=== PATIENT | female | born 1935 | race Caucasian/White ===

== ENCOUNTER 2016-06-12 20:10 | Inpatient (IN) | payer MEDICARE, OTHER ==
--- NOTE | ~2016-06-12 | US37 ---
[facility] A Service of [facility] RADIOLOGY TEXT RESULTS PATIENT: NAVYA CAMARA LOCATION: [facility] : 33 UNIT #: [id number] AGE: [address]: Jayatn Aldridge MD SEX: F ORDER DR: [id number] [facility] [address] [place], [place] [address] [id number] I MR#: [id number] Acc #: [id number] NAME: NAVYA CAMARA : 1935 SEX: F STUDY DATE/TIME: 06/13/2016 10:20 UNIT: [facility] ROOM: [facility] STUDY DESCRIPTION: US Carotid W/Doppler Bilateral Attending Physician: Jayant Aldridge M.D. Ordering Physician: Getachew Ordaz M.D. Primary Care Physician: Crista Antony M.D. MEDICAL IMAGING REPORT This report is preliminary unless electronic signature is present EXAM Carotid duplex scan, 06/13/2016. HISTORY Coronary artery disease. FINDINGS The right common carotid artery has a small amount of dense plaque. There is heterogeneous dense plaque in the right carotid bulb that extends up into the proximal internal and external carotid arteries. Peak systolic velocity in the distal right internal carotid artery is 99 cm/sec with an end diastolic velocity of 19 cm/sec. The ICA:CCA ratio on the right is 1.84. Peak systolic velocity in the right external carotid artery is 261 cm/sec. The right vertebral artery is patent with antegrade flow. The left common carotid artery has a small amount of dense plaque. There is heterogeneous dense plaque in the left carotid bulb that extends up into the proximal internal and external carotid arteries. Peak systolic velocity initiate the distal left internal carotid artery is 97 cm/sec with an end diastolic velocity of 12 cm/sec. The ICA:CCA ratio on the left is 1.45. Peak systolic velocity in the left external carotid artery is 119 cm/sec. The left vertebral artery is patent with antegrade flow. IMPRESSION Plaque, but no significant stenosis (less than 50%) in the internal carotid arteries bilaterally. Significant stenosis of the right external carotid artery. No significant stenosis of the left external carotid artery. Patent vertebral arteries bilaterally with antegrade flow. Dictated by... Judson Newman M.D. [facility] A Service of [facility] RADIOLOGY TEXT RESULTS PATIENT: NAVYA CAMARA LOCATION: [place] [address] : [birth year] UNIT #: [id number] AGE: [address]: Jayant Aldridge MD SEX: F ORDER DR: THIS IS AN ELECTRONICALLY VERIFIED REPORT Judson Newman M.D. at 06/14/2016 7:31 AM LÓPEZ/harriet TD: 06/13/2016 14:28 JOB #: [id number] MEDICAL IMAGING REPORT COPY
--- NOTE | ~2016-06-12 | TH ---
Unit #: [id number] #: [id number] Patient: NAVYA CAMARA [id number] [address] [place], [place] [address] [id number] I MR#: [id number] NAME: NAVYA CAMARA : 1935 SEX: F STUDY DATE/TIME: 06/13/2016 UNIT: C5B ROOM: 559 STUDY DESCRIPTION: Lexiscan stress test - Nuclear Attending Physician: Jayant Aldridge M.D. Primary Care Physician: Crista Antony M.D. CARDIOLOGY REPORT PROCEDURE PERFORMED Lexiscan Cardiolite stress test - Nuclear portion. PROCEDURE Using technetium 99m-labeled Cardiolite, rest and stress SPECT images were obtained. Multiple SPECT images were obtained in various views, including horizontal and vertical long axis and short axis views of the left ventricle. Images were obtained by gated SPECT method. The patient was administered 11.41 mCi of Cardiolite at rest. The patient was administered 35.8 mCi of Cardiolite after Lexiscan infusion was completed. On the stress images, there is normal perfusion noted. The rest images show normal perfusion. Comparing the rest and stress images, there is no stress-induced ischemia noted. The left ventricular ejection fraction is calculated to be 80%. There is no focal wall motion abnormality seen. CONCLUSION 1. No stress-induced ischemia noted. 2. The left ventricular ejection fraction is calculated to be 80%. 3. There is no focal wall motion abnormality seen. 4. The left ventricular size is small. 5. Normal Lexiscan Cardiolite stress test. Dictated by... Leticia Barry/juan j TD: 06/13/2016 15:15 JOB #: [id number] CARDIOLOGY REPORT X Maria Antonia Jenkins MD <ELECTRONICALLY SIGNED> 11/10/16 1428 CARDIOLOGY REPORT
--- NOTE | ~2016-06-12 | CR72 ---
[facility] A Service of [facility] RADIOLOGY TEXT RESULTS PATIENT: NAVYA CAMARA LOCATION: [place] [address] : 33 UNIT #: [id number] AGE: [address]: Jayant Aldridge MD SEX: F ORDER DR: [id number] [place] [id number] I MR#: [id number] Acc #: [id number] NAME: NAVYA CAMARA. : 1935 SEX: F STUDY DATE/TIME: 06/12/2016 20:03 UNIT: SEDOF ROOM: [facility] STUDY DESCRIPTION: CR Chest Single View Portable Attending Physician: Basia Gracia M.D. Ordering Physician: Kiko Giron M.D. Primary Care Physician: Crista Antony M.D. MEDICAL IMAGING REPORT This report is preliminary unless electronic signature is present. EXAM Chest x-ray, portable. DATE OF EXAM 06/12/2016 HISTORY Hypertension today. History of COPD. Head feels weird. COMMENT Single frontal portable view of the chest timed 20:03, 06/12/2016. COMPARISON Compared to 11/07/2012. FINDINGS There is borderline cardiac silhouette enlargement, and this has increased from 2013. Borderline central vascular congestion also suspected. Patchy airspace disease left greater than right lung base probably some atelectasis given the relatively low lung volumes but clinical correlation and follow up is recommended. No pleural effusion or pneumothorax. IMPRESSION Interval increase in cardiac silhouette size since 2012 now borderline enlarged with a suggestion of some mild central vascular congestion. Patchy bibasilar airspace disease left greater than right lung base is probably some atelectasis given the relatively lower lung volumes, but clinical correlation and follow up is recommended to ensure resolution and exclude unlikely secondary possibilities such as aspiration or early pneumonia. [facility] A Service of [facility] RADIOLOGY TEXT RESULTS PATIENT: NAVYA CAMARA LOCATION: [place] [address] : 33 UNIT #: [id number] AGE: [address]: Jayant Aldridge MD SEX: F ORDER DR: Dictated by... Gaby Meade M.D. THIS IS AN ELECTRONICALLY VERIFIED REPORT Gaby Meade M.D. at 06/13/2016 2:17 PM MICHA/yaniv TD: 06/13/2016 00:18 JOB #: [id number] MEDICAL IMAGING REPORT
--- NOTE | ~2016-06-12 | CO ---
Unit #: [id number] #: [id number] Patient: NAVYA WEST [id number] [place] [id number] [facility]. [place], [place] [address] [id number] I MR#: [id number] NAME: NAVYA WEST ROOM: 55 Age: 80 Sex: F Admission Date: 06/12/2016 : 1935 Attending Physician: Jayant Aldridge M.D. Primary Care Physician: Crista Antony M.D. CONSULTATION REPORT REASON FOR CONSULT Chest pain and vertigo. HISTORY OF PRESENT ILLNESS The patient is an 80-year-old white female known to have hypertension, diabetes mellitus, and hyperlipidemia, who had been in a reasonably good state of health until about a week ago when she started complaining of ringing in her ears, dizziness, and lightheadedness which would occur usually during the daytime, mostly when she would be sitting around at home, e.g., watching television or reading something, and rarely if ever during sleep. Change of posture from one side to the other while lying in bed caused no dizziness, lightheadedness, or ringing in her ears. Her periods of dizziness were described as sudden onset of ringing in the ears, followed by a burning sensation in the epigastric region, accompanied by nausea and palpitations. This was occasionally associated with diplopia and blurred vision, and on direct questioning, she admits to having loss of vision as if part of the television screen was turning black. She denied any true syncope, and these symptoms of dizziness and nausea would last for five to 10 minutes at a time. She had been treated with medicines the nature of which she does not know at [facility] without any benefit. She denies any weakness in the extremities, had no headaches to suggest migraines, and she denied any falls. On some occasions when she is walking around the house, she would stager and walk into the hallway allen. She went to the emergency room at [facility] last night and was transferred to this telemetry unit. From a cardiac standpoint, the patient has had two or three episodes of midsternal chest tightness radiating to both infraclavicular regions and the left upper arm, accompanied by tingling and numbness in the left upper extremity, without accompanying diaphoresis, though she was nauseated and denied any shortness of breath. There is no radiation of this discomfort to the interscapular region. She has never been awakened from sleep with chest pain or shortness of breath and denies any orthopnea or nocturnal dyspnea. She has had unilateral left leg edema on occasions which improves after a good night's rest. Patient denies any history of previous NJ, rheumatic fever, or heart murmur, and denies any history of syncope or near syncope. PAST MEDICAL HISTORY 1. Hypertension. 2. Hyperlipidemia. 3. She denies any history of diabetes mellitus. Unit #: [id number] #: [id number] Patient: NAVYA WEST PAST SURGICAL HISTORY Removal of a thyroid nodule. SOCIAL AND PERSONAL HISTORY She stopped smoking after 50 pack years. She does not drink alcohol. FAMILY HISTORY Negative for significant ischemic heart disease, though her of an NJ. PHYSICAL EXAMINATION GENERAL: Examination reveals an elderly female well preserved for her age and is in no acute cardiorespiratory distress. NECK: There is no jugular venous distention. Both carotids have a normal upstroke without any bruits. EXTREMITIES: No ankle edema is noted. Left posterior tibialis pulse is palpable. Right posterior tibialis is feeble. There is no femoral artery bruit. CARDIAC: Exam shows apical impulses palpable in fifth intercostal space in midclavicular line and is normal. Both heart sounds are normal. No rubs or clicks are audible. Thee is a grade 1/6 systolic ejection murmur heard best at the apex suggestive of mitral annulus calcification. No diastolic murmurs are audible. CHEST: Examination shows good air entry bilaterally without any rales or rhonchi. ABDOMEN: Examination shows no hepatosplenomegaly, free fluid, or masses. RECTAL: Deferred. CENTRAL NERVOUS SYSTEM: Examination is within normal limits. DIAGNOSTIC STUDIES LABORATORY: Glucose was normal at 130, creatinine 0.7, GFR 60, and sodium 126. Admission potassium was 3.4. On the morning of June 13, potassium is 2.9, chloride 96, and magnesium is 1.7. CK and CK-MB bands were normal. BNP was 261. TSH was 2.71. INR 1. D-dimer 353. Troponin level was normal. Hemoglobin was 11.9 and hematocrit 34.2. CARDIOLOGY: EKG shows normal sinus rhythm and nonspecific ST segment change. Frequent PVCs in a bigeminal pattern are noted, and there are no acute ischemic changes. Rhythm strips reveal normal sinus rhythm with occasional PVCs. DIAGNOSES 1. Vertigo probably secondary to inner ear disease. 2. Chest pains most likely secondary to significant ischemic heart disease. 3. Premature ventricular contractions probably precipitated by hypokalemia. 4. Hyponatremia and hypokalemia secondary to diuretics. 5. History of hypertension. 6. Hyperlipidemia by history. 7. Reformed smoker. PLAN Patient will be given potassium supplement. She has already been started on long-acting nitrates along with aspirin. Patient will be started on small-dose beta leonarda carvedilol to help control blood pressure and ventricular arrhythmias. I have advised the patient to proceed with Lexiscan Cardiolite study to rule out significant ischemia given her risk Unit #: [id number] #: [id number] Patient: NAVYA WEST factor of age, hyperlipidemia, hypertension, past cigarette smoking history, and now chest discomfort suggestive of ischemic heart disease. All this was discussed with the patient and her son who was at the bedside. I have also taken the liberty to start her on meclizine to help relieve her vertigo. 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 Thank you very much for associating me in the care of Ms. West. Dictated by... Leticia Garcia/silvia TD: 06/13/2016 18:51 JOB #: [id number] CONSULTATION REPORT X Getachew Ordaz MD X CONSULTATION REPORT
--- NOTE | ~2016-06-12 | ST ---
Unit #: [id number] #: [id number] Patient: NAVYA CAMARA [id number] [address] [address] [id number] I MR#: [id number] NAME: NAVYA CAMARA : 1935 SEX: F STUDY DATE/TIME: 06/13/2016 UNIT: C5B ROOM: 559 STUDY DESCRIPTION: Stress Test Attending Physician: Jayant Aldridge M.D. Primary Care Physician: Crista Antony M.D. CARDIOLOGY REPORT REASON FOR EXAM Chest pain, rule out coronary artery disease. DESCRIPTION Baseline EKG shows normal sinus rhythm, occasional PVC. 0.4 mg of Lexiscan was injected per protocol followed by Cardiolite. During the test, the patient did experience complaints of shortness of breath and dizziness. Blood pressure did drop slightly from 147/78 to 112/58. Her symptoms resolved approximately one minute into the recovery period. She denies any complaints of chest pain. During the infusion, there were occasional PVCs. There were no ST or T wave changes noted during the infusion. This test was stopped due to protocol completion. CONCLUSION 1. Negative EKG portion of Lexiscan Cardiolite. 2. No ST or T wave changes suggestive of ischemia during the infusion. 3. The patient did experience shortness of breath and dizziness during the infusion. Blood pressure did drop from 147/78 to 112/58. Her symptoms resolved completely within one minute into the recovery period. She denies any complaints of chest pain. 4. There were occasional PVCs noted. 5. Please correlate with nuclear imaging. Dictated by... Annamarie Hyde A.P.R.N. for Getachew Ordaz M.D. LMW/df TD: 06/13/2016 12:58 JOB #: [id number] Unit #: [id number] #: [id number] Patient: NAVYA CAMARA CARDIOLOGY REPORT X Annamarie Hyde APRN CARDIOLOGY REPORT
--- NOTE | ~2016-06-12 | HP ---
Unit #: [id number] #: [id number] Patient: NAVYA CAMARA [id number] [address] [place], [place] [address] [id number] I MR#: [id number] NAME: NAVYA CAMARA. ROOM: 559 Age: 80 Sex: F Admission Date: 06/12/2016 : 1935 Attending Physician: Basia Gracia M.D. Primary Care Physician: Crista Antony M.D. HISTORY AND PHYSICAL CHIEF COMPLAINT Vertigo, accelerated hypertension, chest pain and hyponatremia. HISTORY This pleasant 80-year-old female with peptic ulcer disease, COPD, hypertension, is admitted for vertigo, and hyponatremia. The patient was in her usual state of health until one week prior to admission when she began to experience vertigo, associated with feeling off balance and occasionally left arm tingling. She was seen at [facility] emergency department a week ago and was diagnosed with vertigo and GERD. Described increased burping and gas but no chest pain. Saw her primary care physician yesterday and her blood pressure was noted to be elevated, potassium somewhat low. Medications were to be adjusted. However, last evening developed increasing vertigo and left arm tingling, along with burping. Went to [facility] emergency department late last evening with a heart rate of 77, blood pressure 198/87. Labs are notable for a sodium of 126, but patient does take Maxzide. She was treated with a GI cocktail, Tums, given 0.1 mg a clonidine. I was called to admit the patient, and I asked that 10 mg of Norvasc also be given. Just before the patient was transferred here, while on the gurney to be transferred she developed chest tightness lasting for about half an hour. She was noted to have bigeminy. She was given aspirin, nitropaste. Before further workup could be done in terms of repeat cardiac enzymes she was taken to our hospital by EMS. At this time she is pain free, and her current blood pressure is 164/69. PAST MEDICAL HISTORY 1. GERD and history of peptic ulcer disease. 2. COPD. 3. Hypertension. 4. Chronic low back pain. 5. Right breast biopsy. 6. Hysterectomy. 7. Partial thyroidectomy. ALLERGIES No known drug allergies. MEDICATIONS Dyazide 75/50 half a tablet daily; metoprolol 25 mg b.i.d.; Advair 100/50 one puff b.i.d.; fish oil daily; Zocor 20 mg daily; multivitamin daily; Prilosec daily. Unit #: [id number] #: [id number] Patient: NAVYA CAMARA FAMILY HISTORY Positive for CAD. SOCIAL HISTORY The patient lives alone. She is accompanied by her son. She stopped smoking about ten years ago. Smoked for about 50 years. Does not drink alcohol. REVIEW OF SYSTEMS Notable for vertigo, feeling off balance, acid reflux, COPD, hypertension, chronic back pain, increasing burping, left arm tingling, episode of chest discomfort, above mentioned surgeries. All other systems were reviewed and are otherwise negative. PHYSICAL EXAMINATION GENERAL: Pleasant, obese, 80-year-old female currently in no acute distress. VITAL SIGNS: Temperature 98.3, blood pressure was as high as 198/87, currently is 164/69, O2 saturation is 96%, pulse is 77, respirations 22. HEENT: Eyes - PERRLA. Extraocular muscles are intact. Pharynx is benign. NECK: Supple without adenopathy or thyromegaly. CHEST: Fairly clear. CARDIAC: Normal S1 and S2 without murmur. ABDOMEN: Bowel sounds are present. No hepatosplenomegaly, tenderness, or masses. EXTREMITIES: Without clubbing, cyanosis or edema. Pedal pulses are diminished. NEUROLOGIC: Patient is awake, alert, and oriented. Cranial nerves are intact. Her speech is fluent. She has +5/5 strength throughout. Normal rapid alternating movements. Normal [id number]. Negative pronator drift. She is a little off balance with ambulation. DIAGNOSTIC STUDIES ADMISSION LABS: Hematocrit 37.2, normal white count and platelet count. Cardiac markers are negative. BNP 261. SMA 12 - sodium 126, potassium 3.4, chloride 92. Urinalysis - 2-5 red cells. IMAGING STUDIES: Chest x-ray - mild cardiomegaly, which was increased from before, suggestive of mild congestive heart failure, left greater than right atelectasis versus infiltrates. Head CT - no acute disease. Atrophy and extensive small vessel ischemic disease noted, which is not changed. CARDIOLOGY STUDIES: Initial EKG - normal sinus rhythm rate 80, normal appearing. EKG while the patient was having chest tightness prior to transfer from [facility] revealed bigeminy, rate 83. ASSESSMENT 1. Accelerated hypertension. 2. Hyponatremia likely related to Maxzide. 3. Chest pressure with bigeminy. 4. Episodes of vertigo over the past week and feeling off balance. 5. CT scan is unchanged. 6. COPD. 7. GERD and peptic ulcer disease. 8. Chronic low back pain. Unit #: [id number] #: [id number] Patient: NAVYA CAMARA PLANS 1. Add Norvasc to Lopressor. Patient did received Norvasc prior to transfer. Would discontinue Maxzide for now given hyponatremia. 2. Aspirin, nitropaste, serial cardiac enzymes, obtain echo, will consult cardiology. 3. Obtain TSH. 4. Open MRI as patient is severely claustrophobic. 5. DVT prophylaxis. 6. Further workup depending on above. Dictated by Leticia Contreras/ts TD: 06/13/2016 06:53 JOB #: [id number] HISTORY AND PHYSICAL X Basia Gracia MD X HISTORY AND PHYSICAL
--- NOTE | ~2016-06-12 | CT71 ---
[facility] A Service of [facility] RADIOLOGY TEXT RESULTS PATIENT: NAVYA CAMARA LOCATION: [place] [address] : [birth year] UNIT #: [id number] AGE: [address]: Jayant Aldridge MD SEX: F ORDER DR: [id number] [place] [id number] I MR#: [id number] Acc #: [id number] NAME: NAVYA CAMARA. : 1935 SEX: F STUDY DATE/TIME: 06/12/2016 20:01 UNIT: SEDOF ROOM: [facility] STUDY DESCRIPTION: CT Head Wo Contrast Attending Physician: Basia Gracia M.D. Ordering Physician: Kiko Giron M.D. Primary Care Physician: Crista Antony M.D. MEDICAL IMAGING REPORT This report is preliminary unless electronic signature is present. EXAM Head CT without. DATE OF EXAM 06/12/2016 HISTORY Hypertension. Head feels weird. Hypertension today. Weakness and nausea. COMMENT Routine noncontrast head CT is reviewed. COMPARISON Comparisons from 06/06/2016. TECHNIQUE NOTE: This CT exam was performed with one or more of the following radiation dose reduction techniques: automatic exposure control, adjustment of mA and/or kV according to patient size, and iterative reconstruction. FINDINGS There is no displaced calvarial fracture. The visualized mastoid air cells are clear. The visualized paranasal sinuses are clear. Moderate atherosclerotic vascular calcifications at the base of the brain. Again, there is atrophy and extensive white matter disease which is nonspecific, but likely due to small vessel disease. Also chronic lacunar insults bilateral basal ganglia likely. There is no evidence for acute intracranial hemorrhage or extraaxial fluid collection. The basilar cisterns are patent. No midline shift. No intracranial mass effect. No obvious change from 06/06/2016. There is clinical concern for acute CVA. Follow up imaging is recommended preferably with MRI if the patient is [facility] A Service [facility] RADIOLOGY TEXT RESULTS PATIENT: NAVYA CAMARA LOCATION: [place] [address] : [birth year] UNIT #: [id number] AGE: [address]: Jayant Aldridge MD SEX: F ORDER DR: candidate. IMPRESSION 1. No acute intracranial abnormalities appreciated, but if there is clinical concern for acute CVA, follow up imaging is recommended preferably with MRI if the patient is a candidate. 2. Redemonstration of atrophy and probable extensive sequelae of small vessel disease not appreciably changed from 06/06/2016. 1. Dictated by... Gaby Meade M.D. THIS IS AN ELECTRONICALLY VERIFIED REPORT Gaby Meade M.D. at 06/13/2016 2:17 PM MICHA/yaniv TD: 06/13/2016 00:25 JOB #: [id number] MEDICAL IMAGING REPORT
--- NOTE | ~2016-06-12 | DS ---
Unit #: [id number] #: [id number] Patient: NAVYA CAMARA [id number] [address] [address] [id number] MR#: [id number] NAME: NAVYA CAMARA. ROOM: [facility] Age: 80 Sex: F Admission Date: 06/12/2016 : 1935 Discharge Date: 06/15/2016 Attending Physician: Jayant Aldridge M.D. Primary Care Physician: Crista Antony M.D. DISCHARGE SUMMARY DIAGNOSES ON ADMISSION 1. Hypertension. 2. Hyponatremia. DIAGNOSES ON DISCHARGE 1. Vertigo, resolved. 2. Hyponatremia, resolved. 3. Chronic obstructive pulmonary disease. 4. Chronic low back pain. 5. Gastroesophageal reflux disease. 6. Hypertension, controlled. CONSULTATION Dr. Ordaz in cardiac consultation. LABS AND PROCEDURES DONE 1. The patient's creatinine is 0.7. Sodium is 135. Potassium is 4.8. 2. WBC 6.2. Hemoglobin is 11.4. Platelet count 243. 3. Urinalysis was negative. 4. The patient's carotid Dopplers did not reveal any significant stenosis in internal carotid arteries bilaterally. There was a significant stenosis of right external carotid artery but no significant stenosis of left external carotid artery. 5. The patient had a Lexiscan Cardiolite stress test done which did not reveal any stress induced ischemia. Ejection fraction was 80%. 6. Troponin was less than 0.03. 7. TSH was 2.7. 8. BNP was 261. HOSPITAL COURSE This 80-year-old female was admitted to [facility] with dizziness. Details are as per admission H and P. The patient described dizziness as vertigo. She was seen by Dr. Ordaz in consultation. Symptoms were attributed to hyponatremia. The patient's symptoms have remarkably improved and she is on meclizine as needed. The patient also had a 2D echocardiogram done which revealed an ejection fraction of 55% and there was mild to moderate mitral regurgitation and mild tricuspid regurgitation present. Hyponatremia: The patient responded well to fluids. The patient's sodium level is 135 now. Hypertension: The patient's blood pressure was elevated on admission which is much better controlled. The patient will be discharged home Unit #: [id number] #: [id number] Patient: NAVYA CAMARA today. PHYSICAL EXAMINATION VITAL SIGNS: Temperature 98.2. Pulse 78 per minute. Respiratory rate 16 per minute. Blood pressure 117/45. HEENT: No conjunctival congestion. Sclerae are nonicteric. NECK: Supple. Trachea is centered. RESPIRATORY: Breath sounds equal bilaterally. There are no wheezes or crackles. HEART: Regular rate and rhythm. S1, S2. ABDOMEN: Soft, nontender. Bowel sounds are present in all four quadrants. NEUROLOGIC: The patient is alert to person, place and time. Strength is 5/5 bilaterally. Sensations are grossly intact. SKIN: Warm and dry. CONDITION Stable. ACTIVITY As tolerated. MEDICATIONS 1. Advair Diskus 100/50 mcg one inhalation b.i.d. 2. Meclizine 12.5 mg p.o. daily b.i.d. p.r.n. 3. Norvasc 10 mg p.o. daily. 4. Lopressor 25 mg p.o. b.i.d. 5. MiraLax as needed. 6. Zocor 20 mg q.h.s. 7. Fish oil one capsule p.o. daily. 8. Multivitamin one tablet p.o. daily. 9. Enteric coated aspirin 81 mg p.o. daily over the counter. 10. Prilosec 20 mg p.o. daily which is a home dose. 11. Potassium chloride 10 mEq p.o. daily. 12. Nitroglycerin 0.4 mg sublingual p.r.n. for chest pain. FOLLOWUP The patient is advised to follow up with primary care physician in one week. The patient is advised to call primary care physician or go to ER if her condition changes. The plan was discussed in detail with patient who showed complete understanding. The patient was advised to follow up with Dr. Antony in one week and have a CBC and BMP done and follow up with Dr. Ordaz as scheduled on August 14. Dictated by... Leticia Siu TD: 06/15/2016 11:12 JOB #: [id number] Unit #: [id number] #: [id number] Patient: NAVYA CAMARA M DISCHARGE SUMMARY X Jayant Aldridge MD X DISCHARGE SUMMARY
--- NOTE | ~2016-06-12 | EKG ---
PATIENT: NAVYA CAMARA UNIT #: [id number] Ventricular Rate: 79 BPM Atrial Rate: 79 BPM P-R Interval: 164 ms QRS Duration: 80 ms Q-T Interval: 382 ms QTC Calculation(Bezet): 438 ms P Weiser: 49 degrees Calculated R Weiser: 3 degrees Calculated T Weiser: 49 degrees Diagnosis Line: Normal sinus rhythm Diagnosis Line: Normal ECG Diagnosis Line: When compared with ECG of 05-JUN-2016 23:59, Diagnosis Line: Premature ventricular complexes are no longer Diagnosis Line: Present Diagnosis Line: Diagnosis Line: Confirmed by WILBER BE MD ([id number]) on Diagnosis Line: 06/19/2016 12:19:51 PM INTERPRETING MD: DUNG
[2016-06-12 19:39] LABS: BASOPHIL# 0.1 X10e3 (0.0-0.3); BASOPHIL% 1.1 % (0.0-2.5); EOSINOPHIL# 0.3 X10e3 (0.0-0.7); EOSINOPHIL% 2.9 % (0.0-7.0); HEMATOCRIT 37.2 % (35.0-45.0); HEMOGLOBIN 13.2 gm/dl (12.0-16.0); LYMPHOCYTE# 2.4 X10e3 (1.0-3.5); LYMPHOCYTE% 24.5 % (17.0-45.0); MEAN CELL VOLUME 93.1 FL (83-96); MEAN CORPUSCULAR HEMOGLOBIN 32.9 PG (28-34); MEAN CORPUSCULAR HGB CONC 35.3 g/dL (30-36); MEAN PLATELET VOLUME 7.6 FL (6.5-11.5); MONOCYTE# 1.2 X10e3 (0.0-1.0); MONOCYTE% 12.2 % (3.0-12.0); NEUTROPHIL# 5.7 X10e3 (1.5-7.1); NEUTROPHIL% 59.3 % (40.0-75.0); PLATELET COUNT 297 X10e3 (140-420); RED CELL DISTRIBUTION WIDTH 12.7 % (11.0-15.5); WHITE BLOOD COUNT 9.7 X10e3 (4.0-10.5)
[2016-06-12 19:40] LABS: DIFF IND NO
[2016-06-12 19:51] LABS: ALKALINE PHOSPHATASE 60 U/L (32-92); ALT (SGPT) 26 U/L (10-40); AST (SGOT) 37 U/L (10-42); BILIRUBIN, DIRECT 0.1 mg/dL (0.0-0.2); BILIRUBIN,INDIRECT 0.4 mg/dL (0.0-0.9); BILIRUBIN,TOTAL 0.5 mg/dL (0.2-2.0); BLOOD UREA NITROGEN 15 mg/dL (9-23); BUN/CREATININE RATIO 16.66; CALCIUM SERUM 9.7 mg/dL (8.4-10.2); CARBON DIOXIDE 23 mmol/L (22-31); CHLORIDE 92 mmol/L (100-111); CREATININE SERUM 0.9 mg/dL (0.6-1.4); GLOM FILT RATE Estimated ABOVE60 mL/min (>60); GLUCOSE FASTING 131 mg/dL (70-110); POTASSIUM 3.4 mmol/L (3.5-5.1); PROTEIN TOTAL SERUM 7.4 g/dL (6.0-8.3); SODIUM 126 mmol/L (135-145)
[2016-06-12 19:59] LABS: POC - CKMB 4.7 ng/mL (0.0-7.9)
[2016-06-12 20:00] LABS: POC - TROPONIN <0.05 ng/mL (<=0.05)
[~2016-06-12 20:10] MED LIST: ACIPHEX20 MG PO; ADVAIR 100-501 EAC1 IH; ADVAIR 250-501 EACH IH; ADVAIR INH; ANTIVERT PO; ATARAX PO; CALCIUM 500 + D1 TAB PO; CALCIUM 600 +1 EAC3 PO; FISH OIL 1,0001 CAP PO; FISH OIL 1,2001 CAP PO; FISH OIL 1,2001 EAC1 PO; FLEXERIL PO; GARLIC; LIPITOR PO; LOPRESSOR PO; MAXZIDE 75/50 T1 TAB PO; MEDROL DOSEPAK4 MG PO; METOPROLOL TAR25 MG DOB; MULTI-VIT/MIN P1 TAB PO; MULTI-VITAMIN1 EAC1 PO; PRILOSEC PO; SIMVASTATIN20 MG PO; TRIAMTERENE-HC1 EACH PO; VITAMIN C500 M1 PO; ZOCOR PO; ZOCOR20 MG PO
[2016-06-12 21:05] LABS: URINE SOURCE CLEAN CATCH
[2016-06-12 21:07] LABS: URINE APPEARANCE CLEAR; URINE BILIRUBIN NEG (NEG); URINE BLOOD 1+ (NEG); URINE COLOR YELLOW; URINE GLUCOSE NEG (NORM); URINE KETONE NEG (NEG); URINE LEUKOCYTE ESTERASE NEG (NEG); URINE NITRATE NEG (NEG); URINE PROTEIN NEG (NEG); URINE SPECIFIC GRAVITY <=1.005 (1.003-1.035); URINE UROBILINOGEN 0.2 MG/DL (NORM)
[2016-06-12 21:08] LABS: MICRO INDICATED? YES
[2016-06-12 21:10] LABS: CULTURE INDICATED? NO; URINE BACTERIA NEG (NEG); URINE SQUAMOUS EPITHELIAL CELL FEW /[HPF]; URINE WBC NEG /[HPF] (0-5)
[2016-06-12 21:36] LABS: POC - CKMB 4.2 ng/mL (0.0-7.9); POC - TROPONIN <0.05 ng/mL (<=0.05)
[2016-06-13 04:23] LABS: MB 5.1 ng/ml
[2016-06-13 08:12] LABS: HEMATOCRIT 34.2 % (35.0-45.0); HEMOGLOBIN 11.9 gm/dL (12.0-16.0); MEAN CELL VOLUME 94.1 FL (83-96); MEAN CORPUSCULAR HEMOGLOBIN 32.8 PG (28-34); MEAN CORPUSCULAR HGB CONC 34.8 g/dL (30-36); MEAN PLATELET VOLUME 7.6 FL (6.5-11.5); RED BLOOD COUNT 3.63 X10e (3.90-5.30); RED CELL DISTRIBUTION WIDTH 13.1 % (11.0-15.5); WHITE BLOOD COUNT 7.4 X10e3 (4.0-10.5)
[2016-06-13 08:32] LABS: PROTHROMBIN TIME (PATIENT) 10.7 SECONDS (9.6-11.5)
[2016-06-13 09:00] LABS: BLOOD UREA NITROGEN 10 mg/dL (9-23); BUN/CREATININE RATIO 14.28; CALCIUM SERUM 8.3 mg/dL (8.4-10.2); CARBON DIOXIDE 24 mmol/L (22-31); CHLORIDE 96 mmol/L (100-111); CREATININE SERUM 0.7 mg/dL (0.6-1.4); GLOM FILT RATE Estimated ABOVE60 mL/min (>60); GLUCOSE FASTING 131 mg/dL (70-110); SODIUM 126 mmol/L (135-145)
[2016-06-13 09:01] LABS: POTASSIUM 2.9 mmol/L (3.5-5.1)
[2016-06-13 09:15] LABS: MB 4.7 ng/ml
[2016-06-13 10:00] LABS: %MB 2.6 % (0.0-4.0); MB 4.1 ng/ml
[2016-06-14 06:22] LABS: HEMATOCRIT 33.3 % (35.0-45.0); HEMOGLOBIN 11.4 gm/dL (12.0-16.0); MEAN CELL VOLUME 95.6 FL (83-96); MEAN CORPUSCULAR HEMOGLOBIN 32.6 PG (28-34); MEAN CORPUSCULAR HGB CONC 34.1 g/dL (30-36); MEAN PLATELET VOLUME 7.7 FL (6.5-11.5); RED BLOOD COUNT 3.48 X10e (3.90-5.30); RED CELL DISTRIBUTION WIDTH 12.9 % (11.0-15.5); WHITE BLOOD COUNT 6.2 X10e3 (4.0-10.5)
[2016-06-14 07:59] LABS: BLOOD UREA NITROGEN 11 mg/dL (9-23); BUN/CREATININE RATIO 15.71; CALCIUM SERUM 8.5 mg/dL (8.4-10.2); CARBON DIOXIDE 23 mmol/L (22-31); CHLORIDE 105 mmol/L (100-111); CHOLESTEROL 128 mg/dL (0-200); CREATININE SERUM 0.7 mg/dL (0.6-1.4); GLOM FILT RATE Estimated ABOVE60 mL/min (>60); GLUCOSE FASTING 89 mg/dL (70-110); HDL CHOLESTEROL 33 mg/dL (35-95); LDL CHOLESTEROL 78 mg/dL (-130); LDL/HDL RATIO 2 RATIO (0-4); MAGNESIUM 1.9 mg/dL (1.6-3.0); SODIUM 135 mmol/L (135-145); TRIGLYCERIDES 85 mg/dL (10-160)
[2016-06-14 08:00] LABS: POTASSIUM 4.8 mmol/L (3.5-5.1)
[2016-06-15] MEDS ORDERED: MECLIZINE HCL12.5 M2 PO (11:39)
[2016-06-15] MEDS ORDERED: NORVASC10 MG PO (11:40)
[2016-06-15] MEDS ORDERED: MIRALAX17 GM PO (11:41)
[2016-06-15] MEDS ORDERED: ASPIRIN81 MG PO (11:42)
[2016-06-15] MEDS ORDERED: POTASSIUM CHLO10 MEQ PO (11:42)
[2016-06-15] MEDS ORDERED: NITROGLYGERIN0.4 MG PO (11:43)
== END 2016-06-15 13:21 | disposition home health service (06) | DRG 641 ==
LOC: SED 20:10 → SEDOF 21:50 → C5B 06-13 01:50
PROVIDERS: Emergency Medicine; Internal Medicine; Internal Medicine Cardiovascular Disease
PROC: B24BYZZ Ultrasonography of Heart with Aorta using Other Contrast (ICD-10-PCS; principal; 2016-06-13)
DX: E87.1 Hypo-osmolality and hyponatremia (principal); J44.9 Chronic obstructive pulmonary disease, unspecified; I10 Essential (primary) hypertension; R42 Dizziness and giddiness; K21.9 Gastro-esophageal reflux disease without esophagitis; Z90.710 Acquired absence of both cervix and uterus; Z87.891 Personal history of nicotine dependence; R00.8 Other abnormalities of heart beat; T50.995A Adverse effect of other drugs, medicaments and biological substances, initial encounter; M54.5 Low back pain; G89.29 Other chronic pain; K27.9 Peptic ulcer, site unspecified, unspecified as acute or chronic, without hemorrhage or perforation; I49.3 Ventricular premature depolarization; E87.6 Hypokalemia; E78.5 Hyperlipidemia, unspecified
CPT/HCPCS: 36415; 70450; 71010; 78452; 80048; 80061; 80076; 81003; 82550; 82553; 83735; 83874; 83880; 84443; 84484; 85025; 85027; 85610; 85730; 93005; 93017; 93306; 93880; 94640; 94664; 94760; 99285; A9500; J1650; J2785

== ENCOUNTER → 2016-09-07 | Outpatient (CLI) | payer MEDICARE, OTHER ==
[~2016-09-07] MED LIST changes: +ASPIRIN81 MG PO; +MECLIZINE HCL12.5 M2 PO; +MIRALAX17 GM PO; +NITROGLYGERIN0.4 MG PO; +NORVASC10 MG PO; +POTASSIUM CHLO10 MEQ PO
--- NOTE | ~2016-09-07 | CR63 ---
[facility] A Service of [facility] RADIOLOGY TEXT RESULTS PATIENT: NAVYA CAMARA [facility] UNIT #: [id number] AGE: [address]: Crista Antony MD SEX: F ORDER DR: [id number] [address] [address] [id number] O MR#: [id number] Acc #: [id number] NAME: NAVYA CAMARA. : 1935 SEX: F STUDY DATE/TIME: 09/07/2016 12:59 [facility] ROOM: STUDY DESCRIPTION: CR Chest 2 View Attending Physician: Crista Antony M.D. Referring Physician: Crista Antony M.D. Ordering Physician: Crista Antony M.D. Primary Care Physician: Crista Antony M.D. MEDICAL IMAGING REPORT This report is preliminary unless electronic signature is present. EXAM PA and lateral chest 09/07/2016 HISTORY Cough for 2 weeks. COMPARISON AP portable chest 06/12/2016. FINDINGS Heart size is within normal limits. Fine interstitial thickening is seen, predominately in the lung bases. The interstitial findings appear very similar to a more remote study from 10/31/2012. There is, however, questionable airspace disease in the left lower lobe anteromedially. No pleural effusion. No pneumothorax. Degenerative spurring in the thoracolumbar spine. IMPRESSION 1. Suspected focal airspace disease in the anteromedial left lower lobe. Radiographic followup recommended. 2. Chronic-appearing interstitial changes in the lung bases, similar to 10/31/2012. Dictated by... Yessenia Kendall M.D. THIS IS AN ELECTRONICALLY VERIFIED REPORT Yessenia Kendall M.D. at 09/10/2016 8:33 AM LLH/pcl [facility] A Service [facility] RADIOLOGY TEXT RESULTS PATIENT: NAVYA CAMARA [facility] UNIT #: [id number] AGE: [address]: Crista Antony MD SEX: F ORDER DR: TD: 09/07/2016 20:19 JOB #: [id number] MEDICAL IMAGING REPORT Page 1 of 1
== END | disposition home or self-care (01) ==
LOC: SRAD 12:52
DX: J20.9 Acute bronchitis, unspecified (principal); R91.8 Other nonspecific abnormal finding of lung field
CPT/HCPCS: 71020

== ENCOUNTER → 2016-12-11 | Outpatient (CLI) | payer MEDICARE, OTHER ==
--- NOTE | ~2016-12-11 | MY11 ---
[facility] A Service of [facility] RADIOLOGY TEXT RESULTS PATIENT: NAVYA CAMARA LOCATION: [facility] : 33 UNIT #: [id number] AGE: [address]: Crista Antony MD SEX: F ORDER DR: [id number] [address] [address] [id number] O MR#: [id number] Acc #: [id number] NAME: NAVYA CAMARA. : 1935 SEX: F STUDY DATE/TIME: 12/11/2016 10:37 UNIT: [facility] ROOM: STUDY DESCRIPTION: MY Mammogram Screening Dig Blayne Attending Physician: Crista Antony M.D. Referring Physician: Crista Antony M.D. Ordering Physician: Crista Antony M.D. Primary Care Physician: Crista Antony M.D. MEDICAL IMAGING REPORT This report is preliminary unless electronic signature is present. EXAMINATION Bilateral digital screening mammogram with CAD. DATE 12/11/2016 HISTORY 80-year-old female with history of benign right breast biopsy 20 years ago. No personal history of breast cancer or current complaints. COMPARISON Bilateral screening mammogram 11/25/2015, 11/22/2014 and 11/20/2013. FINDINGS CC and MLO views were obtained of each breast utilizing digital technique and reviewed with an FDA-approved CAD device. Scattered fibroglandular densities are present bilaterally. Fibronodular densities within the right breast appear stable. Scattered benign calcifications are present within each breast. There are no new suspicious cluster of microcalcifications. No architectural distortion, skin thickening or nipple retraction is identified. IMPRESSION BIRADS 2. Benign findings. Routine bilateral screening mammogram is recommended in 1 year. Patients over the age of 40 are entered into a reminder system with target due date for the next mammogram. A result letter will also be sent to the patient. BIRADS: 2 Benign finding. [facility] A Service [facility] RADIOLOGY TEXT RESULTS PATIENT: NAVYA CAMARA LOCATION: [facility] : 33 UNIT #: [id number] AGE: [address]: Crista Antony MD SEX: F ORDER DR: Dictated by... Yessenia Kendall M.D. THIS IS AN ELECTRONICALLY VERIFIED REPORT Yessenia Kendall M.D. at 12/13/2016 8:49 AM KRISTIAN/collins TD: 12/11/2016 14:17 JOB #: [id number] MEDICAL IMAGING REPORT Page 1 of 1
== END | disposition home or self-care (01) ==
LOC: SMAM 09:39
DX: Z12.31 Encounter for screening mammogram for malignant neoplasm of breast (principal); Z98.890 Other specified postprocedural states
CPT/HCPCS: G0202